=== PATIENT | female | born 1970 | race Caucasian/White ===

== ENCOUNTER 2017-02-11 21:22 | Observation (INO) | payer BC ==
[~2017-02-11] VITALS: Ht 177.8 cm; Wt 73.6 kg
--- NOTE | 2017-02-11 21:31 | PHYS DOC ---
Past Medical History Past Medical History: Asthma Additional Information: non smoker Adult General Chief Complaint Chief Complaint: ALLERGIC REACTION HPI HPI Patient is a 46 year old female who presents with acute allergic reaction. She was eating pizza tonight and started to develop a rash. The rash is worse in her axilla and her trunk. She also started coughing more and clearing of throat. No drooling. No difficulty swallowing. She did used her inhaler and feels as if she is breathing fine and she is not wheezing. No swelling of her time in the. She does feel like her lips are tingling though and that her face is getting little swollen. She took 50 mg Benadryl immediately. She also has a blister to her right hand from removing linoleum yesterday. There is some slight redness to it but no drainage. Review of Systems Review of Systems Constitutional: Denies fever or chills Eyes: facial swelling HENT: POS nasal congestion NO sore throat Respiratory: POS cough or shortness of breath Cardiovascular: No chest pain GI: Denies abdominal pain, nausea, vomiting, bloody stools or diarrhea Integument: POS rash; wound on right hand. Neurologic: Denies headache, focal weakness or sensory changes Current Medications Current Medications Current Medications Medications (Trade) Dose Ordered Sig/Memo Start Time Stop Time Status Last Admin Dose Admin Albuterol/ Ipratropium (Duoneb) 3 ml 1X ONCE 02/11/17 22:00 02/11/17 22:01 DC 02/11/17 21:42 3 ML Ceftriaxone Sodium 50 ml @ 100 mls/hr 1X ONCE 02/12/17 01:00 02/12/17 01:29 DC 02/12/17 01:09 100 MLS/HR Epinephrine HCl (Adrenalin) 1 mg 1X ONCE 02/11/17 22:30 02/11/17 22:31 DC 02/11/17 21:38 1 MG Famotidine (Pepcid) 20 mg 1X ONCE 02/11/17 22:00 02/11/17 22:01 DC 02/11/17 21:43 20 MG Methylprednisolone Sodium Succinate (SOLU-Medrol 125MG VIAL) 125 mg 1X ONCE 02/11/17 22:00 02/11/17 22:01 DC 02/11/17 21:42 125 MG Ondansetron HCl (Zofran) 4 mg PRN Q8HRS PRN 02/12/17 00:45 02/13/17 00:44 Potassium Chloride/Dextrose/ Sod Cl 1,000 ml @ 80 mls/hr 1X ONCE 02/12/17 01:00 02/12/17 13:29 02/12/17 02:25 80 MLS/HR Potassium Chloride (KCl Oral Soln) 20 meq 1X ONCE 02/11/17 23:30 02/11/17 23:31 DC 02/11/17 23:54 20 MEQ Allergies Allergies Allergies Coded Allergies Type Severity Reaction Last Updated Verified No Known Drug Allergies 02/11/17 No Physical Exam Physical Exam Constitutional: Well developed, well nourished, no acute distress, non-toxic appearance. HENT: Normocephalic, atraumatic, bilateral external ears normal, oropharynx moist, no oral exudates, nose normal. No uvula edema; no drooling. Eyes: PERRLA, EOMI, conjunctiva normal, no discharge. Neck: Normal range of motion, no tenderness, supple, no stridor. Cardiovascular:Heart rate regular rhythm, no murmur Lungs & Thorax: Bilateral breath sounds clear to auscultation; no wheezing Abdomen: Bowel sounds normal, soft, no tenderness, no masses, no pulsatile masses. Skin:erythematous rash in axilla and trunk. Right hand palm: area of redness on mid palm from blister; no drainage; redness surrounding but difficulty to determine since she has diffuse rash Back: No tenderness, no CVA tenderness. Extremities: No tenderness, no cyanosis, no clubbing, ROM intact, no edema. Neurologic: Alert and oriented X 3, normal motor function, normal sensory function, no focal deficits noted. Current Patient Data Vital Signs Vital Signs Date Time Temp Pulse Resp B/P (MAP) Pulse Ox O2 Delivery O2 Flow Rate FiO2 02/12/17 01:00 88 128/73 (91) 97 Room Air 02/11/17 22:30 24 02/11/17 21:42 1.5 02/11/17 21:31 97.8 97.8 Lab Values Laboratory Tests Test 02/11/17 22:30 White Blood Count 13.5 x10^3/uL (4.0-11.0) H Red Blood Count 4.74 x10^6/uL (3.50-5.40) Hemoglobin 14.0 g/dL (12.0-15.5) Hematocrit 42.2 % (36.0-47.0) Mean Corpuscular Volume 89 fL (79-100) Mean Corpuscular Hemoglobin 30 pg (25-35) Mean Corpuscular Hemoglobin Concent 33 g/dL (31-37) Red Cell Distribution Width 14.0 % (11.5-14.5) Platelet Count 271 x10^3/uL (140-400) Sodium Level 143 mmol/L (136-145) Potassium Level 2.6 mmol/L (3.5-5.1) *L Chloride Level 107 mmol/L (98-107) Carbon Dioxide Level 25 mmol/L (21-32) Anion Gap 11 (6-14) Blood Urea Nitrogen 19 mg/dL (7-20) Creatinine 1.1 mg/dL (0.6-1.0) H Estimated GFR (Cockcroft-Gault) 54.0 Glucose Level 256 mg/dL (70-99) H Calcium Level 9.3 mg/dL (8.5-10.1) Creatine Kinase 191 U/L (26-192) Creatine Kinase MB (Mass) 1.7 ng/mL (0.0-3.6) Creatine Kinase MB Relative Index 0.9 % (0-4) Troponin I Quantitative < 0.017 ng/mL (0.000-0.055) Laboratory Tests 02/11/17 22:30 Laboratory Tests 02/11/17 22:30 EKG EKG EKG interpreted by myself at 2206PM with diffuse ST depression; non sp ST changes. Repeat EKG interpreted by myself 2356 PM: improvement in ST depression but some still present V3 and V4 Course & Med Decision Making Course & Med Decision Making Evaluated patient upon arrival; IV placed; solumedrol 125 IV; Pepcid 40 IV; epinephrine sq. On monitor strip she appeared to have flutter vs artifact. EKG at 2206 PM with NSR, rate 88, non specific ST changes with diffuse ST depression noted. K is low; probably related to physiologic shift due to hyperventilation. However dosed here po 20 meq. Trop normal. Second EKG at 2356 PM: NSR, rate 72, ST depression has improved; still some in V3, V4. Rechecked patient; her rash has resolved. Ironically can see a well defined lymphangitis to the right hand. Rocephin IV dosed here. Spoke w Cardiology- Dr Mayfield at 0015 AM and recommends admission. Patient admitted to hospitalist Dr Harvey who accepted patient. Patient states her father has atrial fibrillation. Concerned of possible underlying cardiac event that was unmasked by the allergic reaction. I spent approximately 30 minutes working and engaged directly in the patient care providing critical care evaluation this includes but not limited to time spent engaged in work directly related to the individual patients care. I spent time at the bedside, reviewing test results, discussing the case with staff, documenting the medical record and time spent with EMS discussing specific treatment issues when the patient presented and during his evaluation. This includes any discussion and updates with family members and/or patient. I have spoken with the patient and/or caregivers. I have explained the patient' s condition, diagnosis and treatment plan based on the information available to me at this time. I have answered the patient's and/or caregiver's questions and addressed any concerns. The patient and/or caregivers have as good an understanding of the patient's diagnosis, condition and treatment plan as can be expected at this point. The patient has been stabilized within the capability of the emergency department. The patient will be transported for further care and management or will be moved to an observation or inpatient service. I have communicated with the staff or medical practitioner taking over this patient's care. Dragon Disclaimer Dragon Disclaimer This electronic medical record was generated, in whole or in part, using a voice recognition dictation system. Departure Departure Impression: Primary Impression: Acute allergic reaction Disposition: ADMITTED INPATIENT Admitting Physician: Other (Wes) Condition: STABLE Referrals: BRYANT DUBOSE MD (PCP) YOU ERAZO MD Feb 11, 2017 21:31
[2017-02-11] MEDS ORDERED: EPINEPHrine 1 MG/ML VIAL SQ ONE (22:00)
[2017-02-11] MEDS ORDERED: methylPREDNISolone SOD SUCC PF 125 MG/2 ML VIAL. IV ONE (22:00)
[2017-02-11] MEDS ORDERED: IPRATRPIUM/ALBUTEROL 0.5/2.5MG 3 ML NEBU. NEB ONE (22:00)
[2017-02-11] MEDS ORDERED: FAMOTIDINE 20 MG/2 ML VIAL IVP ONE (22:00)
[2017-02-11] MEDS ORDERED: EPINEPHrine 1 MG/ML VIAL IM ONE (22:30)
[2017-02-11 22:42] LABS: HEMATOCRIT 42.2 % (36.0-47.0); RED BLOOD COUNT 4.74 x10^6/uL (3.50-5.40); WHITE BLOOD COUNT 13.5 x10^3/uL (4.0-11.0)
[2017-02-11 22:49] LABS: CALCIUM 9.3 mg/dL (8.5-10.1); CREATININE 1.1 mg/dL (0.6-1.0)
[2017-02-11 22:51] LABS: POTASSIUM 2.6 mmol/L (3.5-5.1)
[2017-02-11 23:04] LABS: CKMB MASS 1.7 ng/mL (0.0-3.6)
[2017-02-11] MEDS ORDERED: POTASSIUM CHLORIDE 20 MEQ/15 ML ORAL LIQUID. PO ONE (23:30)
[2017-02-12] VITALS (7 sets, daily range): BP systolic 100–133; BP diastolic 55–81
[2017-02-12] MEDS ORDERED: ONDANSETRON PF 4 MG/2 ML VIAL. IV PRN (00:45)
[2017-02-12] MEDS ORDERED: POTASSIUM CL 40MEQ D5-0.45NACL 1,000 ML IV ONE (01:00)
[2017-02-12] MEDS ORDERED: PROAIR HFA8.5 GM INH (03:30)
[2017-02-12] MEDS ORDERED: FLUT100D IH (03:30)
[2017-02-12] MEDS ORDERED: CETI10TA22 PO (03:30)
[2017-02-12 05:21] LABS: CALCIUM 9.1 mg/dL (8.5-10.1); CREATININE 0.9 mg/dL (0.6-1.0); POTASSIUM 4.4 mmol/L (3.5-5.1)
--- NOTE | 2017-02-12 07:53 | EKG ---
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
--- NOTE | 2017-02-12 07:53 | EKG ---
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
--- NOTE | 2017-02-12 08:39 | PDOC ---
Provider Note Provider Note [id number] BRYANT DUBOSE MD Feb 12, 2017 08:39
[2017-02-12 08:57] LABS: ALBUMIN 3.7 g/dL (3.4-5.0); DIRECT BILIRUBIN 0.1 mg/dL (0.0-0.2); TOTAL BILIRUBIN 0.2 mg/dL (0.2-1.0); TOTAL PROTEIN 6.6 g/dL (6.4-8.2)
[2017-02-12] MEDS: CEPHALEXIN 250 MG CAPSULE. PO SCH ×2 (09:00→13:11)
--- NOTE | 2017-02-12 09:22 | CARD ---
APPROVED REPORT EXAM: Two-dimensional and M-mode echocardiogram with Doppler and color Doppler. Other Information Quality : Good Rhythm : NSR INDICATION Abnormal ECG 2D DIMENSIONS RVDd2.6 (2.9-3.5cm)Left Atrium(2D)2.9 (1.6-4.0cm) IVSd0.8 (0.7-1.1cm)Aortic Root(2D)2.7 (2.0-3.7cm) LVDd4.3 (3.9-5.9cm)LVOT Diameter2.0 (1.8-2.4cm) PWd0.8 (0.7-1.1cm)LVDs2.5 (2.5-4.0cm) FS (%) 42.1 %SV60.8 ml LVEF(%)73.4 (>50%) Aortic Valve AoV Peak Matt.149.9cm/sAoV VTI30.0cm AO Peak GR.9.0mmHgLVOT Peak Matt.146.4cm/s LVOT VTI 29.48cmAO Mean GR.5mmHg CELESTINO (VMAX)3.57ix8GJZ (VTI)3.19cm2 Mitral Valve MV E Covcblzx14.7cm/sMV DECEL YDWE215tf MV A Cqkwgcmq53.6cm/sMV UOP08fv E/A Ratio1.8MV A Mqjwplhp29oy MVA (PHT)4.26cm2 TDI E/Lateral E'6.4E/Medial E'7.1 Pulmonary Valve PV Peak Pdbvliiw33.0cm/sPV Peak Grad.4mmHg Tricuspid Valve TR P. Viahalxs571ja/sRAP ZGLXTKJX4yvWp TR Peak Gr.08ftEqMGED94frZt Pulmonary Vein S1 Cfnqkrol15.2cm/sD2 Yrrlsrgp39.2cm/s LEFT VENTRICLE The left ventricle is normal size. There is normal left ventricular wall thickness. Left ventricle sy stolic function is normal. The Ejection Fraction is 70%. There is normal LV segmental wall motion. Th e left ventricular diastolic function and filling is normal for age. There is no ventricular septal d efect visualized. RIGHT VENTRICLE The right ventricle is normal size. The right ventricular systolic function is normal. ATRIA The left atrium size is normal. The right atrium size is normal. The interatrial septum is intact wit h no evidence for an atrial septal defect or patent foramen ovale as noted on 2-D or Doppler imaging. AORTIC VALVE The aortic valve is normal in structure and function. The aortic valve is trileaflet. Doppler and Col or Flow revealed no significant aortic regurgitation. There is no significant aortic valvular stenosi s. MITRAL VALVE The mitral valve is normal in structure and function. There is no mitral valve stenosis. Doppler and Color Flow revealed no mitral valve regurgitation noted. TRICUSPID VALVE The tricuspid valve is normal in structure and function. Doppler and Color Flow revealed trace to mil d tricuspid regurgitation. The PA pressure was estimated at 30 mmHg. There is no tricuspid valve sten osis. PULMONIC VALVE The pulmonic valve is not well visualized. Doppler and Color Flow revealed no pulmonic valvular regur gitation. There is no pulmonic valvular stenosis. GREAT VESSELS The aortic root is normal in size. Normal pulmonary venous flow (Doppler). The IVC is normal in size and collapses >50% with inspiration. PERICARDIAL EFFUSION There is no evidence of significant pericardial effusion. Critical Notification Critical Value: No <Conclusion> Left ventricle systolic function is normal. The Ejection Fraction is 70%. There is normal LV segmental wall motion. Trace to mild tricuspid regurgitation. The PA pressure was estimated at 30 mmHg. There is no evidence of significant pericardial effusion.
--- NOTE | 2017-02-12 09:23 | HP ---
ADMIT DATE: 02/12/2017 DATE OF SERVICE: 02/12/2017 CHIEF COMPLAINT: Anaphylactic reaction. HISTORY OF PRESENT ILLNESS: A 46-year-old white female with known chronic allergies and takes Zyrtec normally and she had eaten some pizza and then a few hours later developed anaphylactic skin rash, difficulty breathing and sinus congestion. She was given IV Solu-Medrol and epinephrine in the ER. She started feeling better quickly. There was a transient episode of tachyarrhythmia, possible atrial flutter and has been asymptomatic in sinus rhythm since then. She feels fine at this time and had no other medication or food or unusual exposures prior to this event. PAST MEDICAL HISTORY: MEDICATIONS: She takes inhaled steroids and Zyrtec daily. ALLERGIES: No known drug allergies. She has never demonstrated food allergies, never had any cardiovascular problems. 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 FAMILY HISTORY: Unremarkable. REVIEW OF SYSTEMS: No other complaints. PHYSICAL EXAMINATION: ENT: All within normal limits. NECK: No masses, nodes or bruits. LUNGS: Clear. CARDIOVASCULAR: Regular rate. No irregular beat, murmur or tachycardia. ABDOMEN: Soft, benign and nontender. DERMATOLOGIC: No skin reactions or rashes. She has a 1 cm open blister on the right palm with no streaking seen, though there was some earlier. EXTREMITIES: Good pedal and radial pulses. No joint or skin lesions. NEUROLOGIC: Physiologic. ASSESSMENT: Anaphylactic type reaction likely secondary to food allergy contained in pizza. The tachyarrhythmia may have been stress related or perhaps even artifact as she is very low risk for cardiovascular disease. The lymphangitis seen in the right arm appears to have improved with single dose of Rocephin and steroids that were given as well. PLAN: Oral cephalexin. Echo has been ordered regarding atrial fib or flutter and observation for now as she is currently asymptomatic. BRYANT DUBOSE MD DR: ABHISHEK/genet JOB#: [id number] / [id number]
--- NOTE | 2017-02-12 09:34 | PDOC2 ---
RENATA MELCHOR WAGNER 02/12/17 0934: CARDIAC CONSULT DATE OF CONSULT Date of Consult DATE: 02/12/17 TIME: 09:31 REASON FOR CONSULT Reason for Consult: Abnormal EKG post Epi REFERRING PHYSICIAN Referring Physician: Dr. De La Cruz SOURCE Source: Chart review, Patient HISTORY OF PRESENT ILLNESS HISTORY OF PRESENT ILLNESS This is a 46 yo female who presented with complaints of allergic reaction. Had eaten some pizza an subsequently began having skin rash along with coughing and tingling in her lips and throat. Did use inhaler at home. Denied any specific SOA. Was given IV Solu-Medrol and epinephrine in the ED. Initial EKG noted with diffuse ST depression, which prompted this consult. Denies any associated chest pain, palpitations, dizziness, diaphoresis, or nausea/vomiting. PAST MEDICAL HISTORY Cardiovascular: No pertinent hx Pulmonary: Asthma GI: No pertinent hx Heme/Onc: No pertinent hx Hepatobiliary: No pertinent hx Psych: No pertinent hx Rheumatologic: No pertinent hx Infectious disease: No pertinent hx ENT: No pertinent hx Renal/: No pertinent hx Endocrine: No pertinent hx Dermatology: No pertinent hx PAST SURGICAL HISTORY Past Surgical History: Tonsillectomy FAMILY HISTORY Family History: Coronary Artery Disease (mother's side), Other (AFIB ) SOCIAL HISTORY Smoke: No ALCOHOL: none Drugs: None Lives: with Family CURRENT MEDICATIONS CURRENT MEDICATIONS Current Medications Medications (Trade) Dose Ordered Sig/Memo Route PRN Reason Start Time Stop Time Status Last Admin Dose Admin Famotidine (Pepcid) 20 mg 1X ONCE IVP 02/11/17 22:00 02/11/17 22:01 DC 02/11/17 21:43 Albuterol/ Ipratropium (Duoneb) 3 ml 1X ONCE NEB 02/11/17 22:00 02/11/17 22:01 DC 02/11/17 21:42 Methylprednisolone Sodium Succinate (SOLU-Medrol 125MG VIAL) 125 mg 1X ONCE IV 02/11/17 22:00 02/11/17 22:01 DC 02/11/17 21:42 Epinephrine HCl (Adrenalin) 0.3 mg 1X ONCE SQ 02/11/17 22:00 02/11/17 22:00 DC 02/11/17 21:38 Epinephrine HCl (Adrenalin) 1 mg 1X ONCE IM 02/11/17 22:30 02/11/17 22:31 DC 02/11/17 21:38 Potassium Chloride (KCl Oral Soln) 20 meq 1X ONCE PO 02/11/17 23:30 02/11/17 23:31 DC 02/11/17 23:54 Ceftriaxone Sodium 50 ml @ 100 mls/hr 1X ONCE IV 02/12/17 01:00 02/12/17 01:29 DC 02/12/17 01:09 Potassium Chloride/Dextrose/ Sod Cl 1,000 ml @ 80 mls/hr 1X ONCE IV 02/12/17 01:00 02/12/17 08:41 DC 02/12/17 02:25 ALLERGIES ALLERGIES: Coded Allergies: No Known Drug Allergies (Unverified , 02/11/17) ROS Review of System 14 point ROS conducted with pertinent positives noted above in HPI. PHYSICAL EXAM General: Alert, Oriented X3, Cooperative, No acute distress HEENT: Atraumatic, Mucous membr. moist/pink Lungs: Clear to auscultation, Normal air movement Heart: Regular rate, Normal S1, Normal S2, No murmurs Abdomen: Soft, No tenderness Extremities: No edema, Normal pulses Skin: No breakdown, No significant lesion Neuro: Normal speech, Sensation intact Psych/Mental Status: Mental status NL, Mood NL MUSCULOSKELETAL: No joint tenderness VITALS VITALS Vital Signs Date Time Temp Pulse Resp B/P (MAP) Pulse Ox O2 Delivery O2 Flow Rate FiO2 02/12/17 08:00 1.5 02/12/17 07:30 98.4 74 19 124/74 (91) 96 Room Air 98.4 LABS Lab: Laboratory Tests Test 02/11/17 22:30 02/12/17 04:07 White Blood Count 13.5 x10^3/uL (4.0-11.0) Red Blood Count 4.74 x10^6/uL (3.50-5.40) Hemoglobin 14.0 g/dL (12.0-15.5) Hematocrit 42.2 % (36.0-47.0) Mean Corpuscular Volume 89 fL (79-100) Mean Corpuscular Hemoglobin 30 pg (25-35) Mean Corpuscular Hemoglobin Concent 33 g/dL (31-37) Red Cell Distribution Width 14.0 % (11.5-14.5) Platelet Count 271 x10^3/uL (140-400) Sodium Level 143 mmol/L (136-145) 141 mmol/L (136-145) Potassium Level 2.6 mmol/L (3.5-5.1) 4.4 mmol/L (3.5-5.1) Chloride Level 107 mmol/L (98-107) 108 mmol/L (98-107) Carbon Dioxide Level 25 mmol/L (21-32) 24 mmol/L (21-32) Anion Gap 11 (6-14) 9 (6-14) Blood Urea Nitrogen 19 mg/dL (7-20) 15 mg/dL (7-20) Creatinine 1.1 mg/dL (0.6-1.0) 0.9 mg/dL (0.6-1.0) Estimated GFR (Cockcroft-Gault) 54.0 68.0 Glucose Level 256 mg/dL (70-99) 195 mg/dL (70-99) Calcium Level 9.3 mg/dL (8.5-10.1) 9.1 mg/dL (8.5-10.1) Creatine Kinase 191 U/L (26-192) Creatine Kinase MB (Mass) 1.7 ng/mL (0.0-3.6) Creatine Kinase MB Relative Index 0.9 % (0-4) Troponin I Quantitative < 0.017 ng/mL (0.000-0.055) < 0.017 ng/mL (0.000-0.055) Total Bilirubin 0.2 mg/dL (0.2-1.0) Direct Bilirubin 0.1 mg/dL (0.0-0.2) Aspartate Amino Transf (AST/SGOT) 17 U/L (15-37) Alanine Aminotransferase (ALT/SGPT) 25 U/L (14-59) Alkaline Phosphatase 74 U/L (46-116) Total Protein 6.6 g/dL (6.4-8.2) Albumin 3.7 g/dL (3.4-5.0) ECHOCARDIOGRAM ECHOCARDIOGRAM <Conclusion> Left ventricle systolic function is normal. The Ejection Fraction is 70%. There is normal LV segmental wall motion. Trace to mild tricuspid regurgitation. The PA pressure was estimated at 30 mmHg. There is no evidence of significant pericardial effusion. DATE: 02/12/17 0951 ASSESSMENT/PLAN ASSESSMENT/PLAN 1. Allergic reaction; resolved 2. Abnormal EKG; diffuse ST noted in initial EKG; nearly resolved in repeat study. T-wave inversion noted in anteroseptal leads. Echo shows normal LV function with no WMA. 3. Hypokalemia; resolved Recommendations Given EKG changes and family history of CAD, will proceed with MPI to r/o ischemia. If negative, may discharge from a CV standpoint Problems: KEVIN WALKER MD 02/12/17 1548: CARDIAC CONSULT ALLERGIES ALLERGIES: Coded Allergies: No Known Drug Allergies (Unverified , 02/11/17) ASSESSMENT/PLAN ASSESSMENT/PLAN Patient seen and examined. Agree with CLOTH DESIGNER's assessment and plan. EKG on admission showed dynamic diffuse ST depressions and T-wave inversions. Myocardial infarction been ruled out. 2-D echo showed normal LV function. Treadmill nuclear stress test showed evidence of ischemia on EKG without any significant ischemia on scintigraphic images. The option of conservative management versus definitive evaluation with cardiac catheterization was discussed in detail along with the risks and benefits. Patient would like to proceed with cardiac catheterization. Thank you for your consultation. Problems: RENATA MELCHOR APRN Feb 12, 2017 09:34 KEVIN WALKER MD Feb 12, 2017 15:48
--- NOTE | 2017-02-12 15:04 | RAD ---
APPROVED REPORT Test Type: Exercise Stress Nurse/Tech: Komal La R.N. Test Indications: palpitations Cardiac History: asthma Medications: see ehr Medical History: see ehr Resting ECG: SR Resting Heart Rate: 64 bpm Resting Blood Pressure: 120/75mmHg Pretest Chest Pain: No chest pain Nurse/Tech Notes lungs cta, heart tones regular Consent: The procedure was explained to the patient in lay terms. Informed consent was witnessed. Chito eout was entered into [place] [employer]. History and Stress Test performed by Komal La R.N. Stress Symptoms No chest pain or symptoms.Dyspnea POST EXERCISE Reason for Termination: Reached target heart rate Target HR: Yes Max HR: 161 bpm 91% of Maximum Predicted HR: 176 bpm Exercise duration: 6:45 min:sec, 3 Stage Exercise capacity: 10.0METs Max Blood Pressure: 138/77mmHg Blood Pressure response to exercise: Normal blood pressure response during stress. Heart Rate response to exercise: normal Chest Pain: No. Arrhythmia: No. ST Change: Yes. ST depression in II, III, avf, V3-V6, V3-V6 persisted through recovery, T wave invers ion also noted throughout INTERPRETATION Stress EKG Conclusion: Baseline EKG showed sinus rhythm. Horizontal ST depressions and T-wave inversi ons at peak stress consistent with ischemia. Patient however did not have any chest pain. No arrhythm ias. Imaging Protocol IMAGE PROTOCOL: Rest Tc-99m/stress Tc-99m 1 day Rest: Stress: Viability: Radiopharm.Tc99m RvadxjtzlZo83i Sestamibi Dose10.7mCi 33.7mCi Duration 15min. 10min. Img Date 02/12/2017 02/12/2017 Inj-Img Igdx82dhy. 60min. Rest Admin Site:IV - Left AntecubitalAdministrator:BARON Phipps, ARRT (R)(N) Stress Admin Site: IV - Left AntecubitalAdministrator: Mame Hurst, RT (R)(N) STRESS DATA End Diast. Vol.70.0mlAv. Heart Rate73.0bpm End Syst. Vol.5.0mlCO Index BSA0.0L/min Myocardial Bxha698.0gEject. Kvricbiu86.0% Stress Rates Pk. Fill Rate4.75EDV/secLVtime Pk. Fill 177.64msec Pk. Empty Rate5.27ESV/secLVtime Pk. Fsegx461.44msec 05/30 Pk. Fill1.32EDV/sec Stress Scores Regional WT0.00Summed WT0.00 Regional WM0.00Summed WM0.00 Study quality was good. Left Ventricular size was Normal at Rest and Stress. Lung uptake was Normal. Left Ventricular ejection fraction is >80%. The rest and stress images show normal perfusion, normal contraction and thickening. LV Perf. Quant 17 Seg. SSS0.00 17 Seg. SRS0.00 17 Seg. SDS0.00 Stress Defect Extent (% LAD)0.00Rest Defect Extent (% LAD)0.00Rev. Defect Extent (% LAD)0.00 Stress Defect Extent (% LCX) 0.00Rest Defect Extent (% LCX)0.00Rev. Defect Extent (% LCX)0.00 Stress Defect Extent (% RCA)0.00Rest Defect Extent (% RCA)0.00Rev. Defect Extent (% RCA)0.00 Stress Defect Extent (% VIDA)0.00Rest Defect Extent (% VIDA)0.00Rev. Defect Extent (% VIDA)0.00 Conclusion 1. Treadmill exercise cardioisotope stress test showed EKG evidence of ischemia but scintigraphic jose ges did not show any evidence of ischemia or infarct. 2. Normal left ventricular systolic function with ejection fraction calculated at >80%. 3. Patient had good activity tolerance.
[2017-02-12] MEDS ORDERED: VERAPAMIL 5 MG/2 ML VIAL. ONE (15:48)
[2017-02-12] MEDS ORDERED: HEPARIN for IV BOLUS 10,000 UNIT/10 ML VIAL. ONE (15:48)
[2017-02-12] MEDS ORDERED: MIDAZOLAM HCL/PF 2 MG/2 ML VIAL. ONE (15:49)
[2017-02-12] MEDS ORDERED: NITROGLYCERIN 200 MCG/2 ML SYRINGE FOR CATH/VASC LAB. ONE (15:49)
[2017-02-12] MEDS ORDERED: fentaNYL PF VIAL 100 MCG/2 ML VIAL ONE (15:49)
[2017-02-12] MEDS ORDERED: MIDAZOLAM HCL/PF 2 MG/2 ML VIAL. IV ONE (16:00)
[2017-02-12] MEDS ORDERED: IOHEXOL 300 MG/ML 100ML VIAL. IART ONE (16:00)
[2017-02-12] MEDS ORDERED: HEPARIN for IV BOLUS 10,000 UNIT/10 ML VIAL. IART ONE (16:00)
[2017-02-12] MEDS ORDERED: LIDOCAINE 2% 20 ML VIAL. IJ ONE (16:00)
[2017-02-12] MEDS ORDERED: VERAPAMIL 5 MG/2 ML VIAL. IART ONE (16:00)
[2017-02-12] MEDS ORDERED: NITROGLYCERIN 200 MCG/2 ML SYRINGE FOR CATH/VASC LAB. IART ONE (16:00)
[2017-02-12] MEDS ORDERED: fentaNYL PF VIAL 100 MCG/2 ML VIAL IV ONE (16:00)
[2017-02-12] MEDS ORDERED: IV 1/2 NORMAL SALINE 1,000 ML IV SCH (16:37)
--- NOTE | 2017-02-12 16:37 | PDOC ---
MODERATE SEDATION ASSESSMENT RISKS/ALTERNATIVES Risks/Alternatives Risks and alternatives of this type of sedation and procedure discussed with: RISK/ALTERNATIVES: Patient H & P ON CHART H & P H & P on chart and reviewed for co-morbid conditions and appropriate labs. H&P ON CHART: Yes STATUS PREG STATUS ASSESSED: N/A MEDS/ALLERGIES REVIEWED Meds/Allergies Reviewed Medications and Allergies including time and route of recently administered narcotics and sedatives. MEDS/ALLERGIES REVIEWED: Yes ASA RATING ASA RATING: II AIRWAY ASSESSMENT Airway Assessment Airway patency, oral function limitations, presence of caps, crowns, dentures, partials, and ability to extend neck assessed. AIRWAY ASSESSMENT: Yes MALLAMPATI SCORE MALLAMPATI SCORE: II PRE-SEDATION ASSESSMENT PRE-SEDATION ASSESSMENT: Yes KEVIN WALKER MD Feb 12, 2017 16:37
[2017-02-12] MEDS ORDERED: NITROGLYCERIN SUBLINGUAL 0.4 MG BOTTLE OF 25. SL PRN (16:45)
--- NOTE | 2017-02-12 17:08 | CARD ---
APPROVED REPORT Procedure(s) performed: Left heart catheterization and selective coronary angiography via right trans radial approach Moderate sedation: 25 minutes INDICATION The indication(s) include : Abnormal EKG and positive stress test. PROCEDURE NARRATIVE After explaining the risks, benefits and alternative options, informed consent was obtained from cristian ent. Patient was brought to the cardiac Board Machine Set Up Operator and right wrist was prepped and draped in the usual fashion after confirming a positive modified Karan's test. Arterial access was obtained in [facility] t radial artery and a 6 Ghanaian sheath was inserted. 6 Ghanaian Nuno catheter was used to perform ivone ective angiography of the left and right coronary arteries. LVEDP and transaortic gradients remeasure d. Left ventriculography was not performed since recent 2-D echo showed normal LV function. Patient t olerated the procedure well. Hemostasis was achieved using TR band. There were no immediate complic ations. The following findings were noted. FINDINGS 1. Hemodynamics: Left ventricular end-diastolic pressure of 14 mmHg. No pullback gradient across th e aortic valve. 2. Coronary angiography: a. The left main coronary artery arose from the left sinus of Valsalva, gave rise to the left anteri or descending and left circumflex arteries and did not show any significant stenosis. b. The left anterior descending artery did not show any significant stenosis. c. The left circumflex artery did not show any significant stenosis. d. The right coronary artery was a large and dominant vessel arising from the right sinus of Valsalv a that did not show any significant stenosis. Conclusion No significant coronary artery disease Recommendations Cardiac Risk Reduction Program
[2017-02-12] MEDS ORDERED: CEPH-263 PO (18:59)
--- NOTE | 2017-02-12 20:21 | DS ---
DATE OF DISCHARGE: 02/12/2017 ____ 500 mg 3 times a day for 5 days, #15; cephalexin, no refills. My number [phone]. BRYANT DUBOSE MD DR: Paulette JOB#: [id number] / [id number]
--- NOTE | 2017-02-12 20:32 | DS ---
DATE OF DISCHARGE: 02/12/2017 HOSPITAL SUMMARY: The patient came in with anaphylactic reaction to unknown cause, but came on after eating some pizza. Because of some mild EKG changes, she was taken to the clinical lab clerk after borderline abnormal MPI and the cath is pending at this time but should be discharged later today if is normal. Cellulitis of the right arm was treated with IV Rocephin and oral Keflex and she is comfortable to be discharged and follow. FINAL DIAGNOSES: 1. 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 2. Cellulitis of the right upper extremity. OPERATIONS AND PROCEDURES: Cardiac catheterization. COMPLICATIONS: None. CONSULTATIONS: Sunday Fuentes M.D. DISPOSITION: Keflex 500 mg 3 times a day for 5 more days. Home meds remain the same. Office followup in 1 week and follow up with Dr. Fuentes based on his findings. BRYANT DUBOSE MD DR: ABHISHEK/nts JOB#: [id number] / [id number]
== END 2017-02-12 20:43 | disposition home or self-care (01) ==
LOC: ER 21:22 → INTOOBSV 02-12 01:26 → 2 SOUTH 02-12 01:26
PROVIDERS: ADMIT Internal Medicine Hematology & Oncology; ATTEND Family Medicine
DX: T78.00XA Anaphylactic reaction due to unspecified food, initial encounter (principal); L03.113 Cellulitis of right upper limb; E87.6 Hypokalemia; I89.1 Lymphangitis; J45.909 Unspecified asthma, uncomplicated; T78.2XXA Anaphylactic shock, unspecified, initial encounter; Z82.49 Family history of ischemic heart disease and other diseases of the circulatory system
CPT/HCPCS: 36415; 78452; 80048; 80076; 82553; 83735; 84443; 84484; 85027; 93005; 93017; 93306; 93458; 94640; 96365; 96372; 96375; 99285; A9500; C1769; C1892; G0378; J0171; J0690; J1644; J2250; J2930; J3010; J3490; J7042; J7620; S0028; 96374; 96376; 99152; G0379; Q9967; J2001

== ENCOUNTER → 2019-04-10 | Outpatient (CLI) | payer BC ==
[2017-02-12 16:45] VITALS: BP 112/69
[~2019-04-10] MED LIST: ALBU2.5V8 INH; CEPH-263 PO; CETI10TA22 PO; FLUT100D IH
--- NOTE | 2019-04-10 12:53 | RAD ---
Examination: US GUID NDL PLACE/ASPI/BX History: Left thyroid nodule Comparison/Correlation: 03/25/2019 ultrasound of the head and neck performed at diagnostic imaging centers Findings: Risks and benefits of ultrasound-guided fine needle aspiration of a left thyroid nodule were discussed with the patient and informed consent was obtained. Cleansing with ChloraPrep was performed. Sterile drapes were placed. Sterile probe cover and serial digital were utilized. A total of 7 cc 1 percent lidocaine was administered on expected course of the needle track with lateral approach. A total of 4 separate 25-gauge needles with attached syringe were utilized. Passes into the left thyroid lobe hypoechoic nodule were made under ultrasound guidance and specimens were provided to the pathology department business center representative present during the procedure. The specimens were reported to be adequate. Patient tolerated procedure well without immediate complications. Impression: Successful fine needle aspiration of a left thyroid hypoechoic nodule. Electronically signed by: Brandin Farooq MD (04/10/2019 12:50 PM) [facility]
--- NOTE | 2019-04-16 13:07 | PATHOLOGY ---
Note [facility] Accession Number: [id number] TESTS RESULT FLAG UNITS REF RANGE LAB Clinician Provided Cytology Information No. of containers..01 Other (Miscellaneous) Source: THYROID NODULE DIAGNOSIS: LT THYROID NODULE NEGATIVE FOR MALIGNANT CELLS. BETHESDA CATEGORY II. SPECIMEN CONSISTS OF CLUSTERS OF FOLLICULAR EPITHELIAL CELLS, FEW HEMOSIDERIN-LADEN MACROPHAGES, SCANT COLLLOID, AND BLOOD. FAVOR ADENOMATOUS NODULE. THIS INTERPRETATION INCLUDES EVALUATION OF A CELL BLOCK. Pathologist ICD10: 02 E06.3 Signed out by: Kobe Harmon MD, Pathologist NPI- [id number] Performed by: Gael Perez, Autistic Teacher ([facility]) Gross description: 30 ML, MELINDA, CLEAR /LCS 05/27/1840 0000 Local FLAG LEGEND: L-Low Normal,H-High Normal,LL-Alert Low,HH-Alert High <-Panic Low,>-Panic High,A-Abnormal,AA-Critical Abnormal Performed at: [facility] [address] [place] [address] Jose Nix MD, [address] [facility] [address] [place] [address] Kobe Harmon MD, Specimen Comment: A courtesy copy of this report has been sent to [phone], [phone] Specimen Comment: [id number] Specimen Comment: [id number] Specimen Comment: Report sent to / DR MARION Specimen Comment: A duplicate report has been generated due to demographic updates. Performed at: [address], [place] [id number] MD Jose Nix MD Phone: [phone]
== END | disposition home or self-care (01) ==
LOC: US 08:24
PROVIDERS: ATTEND Family Medicine
DX: E04.1 Nontoxic single thyroid nodule (principal)
CPT/HCPCS: 10005; 60300; 76942; 88173

== ENCOUNTER → 2019-12-30 | Outpatient (CLI) | payer OTHER, BC ==
[2017-02-12 16:45] VITALS: BP 112/69
[~2019-12-30] MED LIST changes: -CETI10TA22 PO; +CETI10TA74 PO
== END | disposition home or self-care (01) ==
LOC: LAB 10:10
PROVIDERS: ATTEND Internal Medicine Pulmonary Disease
DX: R19.7 Diarrhea, unspecified (principal); Z20.828 Contact with and (suspected) exposure to other viral communicable diseases
CPT/HCPCS: U0003-CS

== ENCOUNTER → 2021-05-20 | Outpatient (CLI) | payer OTHER, BC ==
[2017-02-12 16:45] VITALS: BP 112/69
[~2021-05-20] MED LIST changes: -FLUT100D IH; +FLUT100D2 IH
== END ==
LOC: LAB 21:00
PROVIDERS: ATTEND Internal Medicine Pulmonary Disease
DX: U07.1 COVID-19 (principal)
CPT/HCPCS: U0003; U0005